=== PATIENT | female | born 1965 | race Hispanic/Latino ===

== ENCOUNTER 2018-10-07 21:54 | Emergency (ER) | payer BC ==
[2018-10-07] MEDS ORDERED: PREDNISONE 20 MG TABLET ONE (22:28)
[2018-10-07] MEDS ORDERED: FAMOTIDINE 20MG TAB 20 MG TAB ONE (22:28)
[2018-10-07] MEDS ORDERED: DIPHENHYDRAMINE HCL 25 MG CAPSULE ONE (22:28)
== END 2018-10-07 23:54 | disposition home or self-care (01) ==
LOC: EDH 21:54
DX: L50.0 Allergic urticaria (principal); I10 Essential (primary) hypertension
CPT/HCPCS: 99284; Q0163